=== PATIENT | female | born 2000 | race Caucasian/White ===

== ENCOUNTER 2025-07-21 23:55 | Observation (INO) | payer OTHER, SELFPAY ==
[2025-07-21 18:07] VITALS: BP 118/81
[2025-07-21 18:48] LABS: Urine Character Clear (Clear)
[2025-07-21 19:15] LABS: Urine Squamous Cell >30 /LPF (Few)
[2025-07-21 19:37] VITALS: BMI 34.0
--- NOTE | 2025-07-21 20:01 | ED.GENMED ---
History of Present Illness
General
Chief Complaint: Abdominal Pain
Source: patient
Exam Limitations: none
Time Seen by Provider: 07/21/25 19:49
Nursing documentation reviewed up to this point in time: agreed with
History of Present Illness
History of Present Illness:
Note:
CHIEF COMPLAINT(S)
Abdominal pain.
HISTORY OF PRESENT ILLNESS
The patient is a 25-year-old female who presents with abdominal pain that started three days ago. She describes the pain as sharp and constant, with exacerbating episodes. She reports having to bend over due to the intensity of the pain and mentions
that taking deep breaths exacerbates the discomfort. She denies any urinary symptoms, fever, vomiting, or diarrhea. The patient also describes tenderness in the abdominal area, which she indicated to the provider. The pain distribution does not
typically align with kidney stones or cholecystitis, but an evaluation for potential kidney infection is being considered. The patient states that the pain is manageable at the moment, although there are episodes where it becomes quite sharp.
PAST MEDICAL AND SURGICAL HISTORY
The patient has a history of two skin grafts and a surgical procedure involving a jonnie insertion into her leg due to a tibial fracture incurred while sledding.
PAST SURGICAL HISTORY
- Two skin grafts: one for skin removal from the hand, replaced with skin from the inner thigh and inner elbow.
- Titanium jonnie insertion for a tibial fracture due to sledding injury.
PHYSICAL EXAM
General: Alert, no acute distress.
Skin: Warm, dry.
Head: Normocephalic, atraumatic.
Neck: Supple, trachea midline.
Eye Ears, nose, mouth and throat: Oral mucosa moist.
Cardiovascular: Normal peripheral perfusion, No edema.
Respiratory: Respirations are non-labored.
Gastrointestinal : Abdomen tender to palpation, localized LUQ, RLQ.
Back: Normal range of motion, Normal alignment.
Musculoskeletal: Normal ROM, normal strength.
Neurological: Alert and oriented to person, place, time, and situation. No focal neurological deficit observed.
Psychiatric: Cooperative, appropriate mood & affect.
PLAN
- Obtain a urine sample and perform urinalysis.
- Initiate an intravenous line, conduct blood tests.
- Consider a computed tomography scan to evaluate abdominal tenderness.
- Possible oral contrast administration pending lab results.
- Evaluate for potential kidney infection.
- Monitor pain levels and provide analgesics if necessary.
DIFFERENTIAL DIAGNOSIS
The Differential Diagnosis includes, in no particular order and is not limited to:
1. Abdominal muscle strain
2. Gastroenteritis
3. Appendicitis
4. Nephrolithiasis (kidney stones)
5. Cholecystitis
6. Pancreatitis
7. Urinary tract infection
8. Diverticulitis
9. Ovarian pathology (cysts or torsion)
10. Pyelonephritis
Disposition:
SUMMARY OF ENCOUNTER
The patient was seen in the emergency department due to an abdominal pain that had persisted for several days. The evaluation included the consideration of various diagnoses. During the visit, she experienced an allergic reaction likely due to IV
contrast dye, characterized by hives. Immediate management included administration of intravenous diphenhydramine, which alleviated her symptoms. Thereafter, her care was transferred to the hospitalists for further management.
DISPOSITION
Admit to hospitalists.
ASSESSMENT
The patient demonstrated an allergic reaction to IV contrast, presenting with hives, and improved with treatment. Her condition required admission to the hospital for further evaluation and management.
EMERGENCY TREATMENTS ADMINISTERED
Intravenous diphenhydramine was administered to address the allergic reaction.
MANAGEMENT OF THE PATIENTS CARE WAS DISCUSSED WITH
The patients care and further management plans were discussed with the hospitalists upon admission.
INDEPENDENT REVIEW OF LABS AND INTERPRETATION OF TESTS
My independent review of the lab results indicates leukocytosis, suggesting an inflammatory or infectious process.
PATIENT EDUCATION AND COUNSELING
The patient was informed about the potential allergic reaction to IV contrast and the importance of documenting this allergy in her medical records to prevent future occurrences.
FOLLOW-UP INSTRUCTIONS
Follow-up plans to be continued with the hospital team and any emerging recommendations will be provided upon discharge.
MEDICATION RECONCILIATION
Intravenous diphenhydramine was given for the allergic reaction.
MEDICAL DECISION MAKING
- Number and Complexity of Problems Addressed: Chronic conditions affecting care include the patients history of skin grafts and a surgical procedure for a tibial fracture. Differential diagnoses considered were abdominal muscle strain,
gastroenteritis, appendicitis, nephrolithiasis, cholecystitis, pancreatitis, urinary tract infection, diverticulitis, ovarian pathology, and pyelonephritis.
- Data:
Category 1: Lab tests reviewed indicated leukocytosis.
Category 3: Discussion of management involved consulting with hospitalists regarding the patients admission.
- Risk: Consideration of Admission/Observation was required due to the complexity and risk, including the need for hospital admission for further evaluation and management.
DIAGNOSIS
Diverticulitis
Allergic reaction to IV contrast (ICD-10: T78.2XXA). Leukocytosis (ICD-10: D72.829).
Past History
Past History
ED Past Medical History: GERD, Other (Vocal cord disfunction, Constipation, Fatty liver) and Other (Meds: Allergy medicine, control pills, Lamictal); Negative Asthma, HTN, Hypercholesterolemia or NIDDM
ED Past Surgical History: None
Social History
Tobacco: Non-smoker
Alcohol: Occasional
Personal: Single
Living: with family
Phy Exam
Physical Exam
Physical Exam:
.
Course
Orders/Labs/Results
Orders:
Orders
07/21/25 18:11
Test Result ONCE
07/21/25 18:21
Urinalysis Reflex To Culture Urgent
Date Specimen was Collected: 07/21/25
Time Specimen was Collected: 18:11
Urine Microscopic Reflex Cult Urgent
Urine Culture Urgent
ARSENIO Source: U
Specimen Description:
Date Specimen was Collected: 07/21/25
Time Specimen was Collected: 18:11
07/21/25 19:59
Iohexol [Omnipaque] See Protocol PO NOW STA
07/21/25 20:00
CT Abd/pel W Iv And Oral Contr Urgent
Comment:
Reason For Exam: diffuse abd pain
07/21/25 20:46
Basic Metabolic Panel Urgent
Complete Blood Count/With Diff Urgent
Lipase Urgent
07/21/25 21:49
HCG, Serum Qualitative Screen Urgent
Ezpka-Uclv-Payvrjy Urgent
Morphine Sulfate 4 mg IV NOW STA
Ondansetron Injectable [Zofran] 4 mg IV NOW STA
07/21/25 22:38
Diphenhydramine [Benadryl] 25 mg IV NOW STA
07/21/25 23:06
Piperacillin/Tazo 4.5 Gram [Zosyn] 4.5 gram in 100 ml IV NOW
Abnormal Lab Results
07/21/25 07/21/25 07/21/25
18:21 20:46 21:49
WBC 15.7 H 10^3/uL
(4.8-10.8)
Hct 36.9 L %
(37.0-47.0)
Abs Immat Gran (auto) 0.1 H 10^3/uL
(0-0.05)
Absolute Neuts (auto) 10.7 H 10^3/uL
(1.4-6.5)
Absolute Monos (auto) 1.2 H 10^3/uL
(0.1-0.6)
Carbon Dioxide 21 L mmol/L
(22-30)
BUN 6 L mg/dl
(7-17)
Creatinine 0.5 L mg/dL
(0.6-1.0)
Total Bilirubin 2.1 H mg/dl
(0.2-1.3)
Direct Bilirubin 0.5 H mg/dl
(0.0-0.4)
Urine Ketones 3+ A
(Negative)
Ur Occult Blood Reflex 3+ A
(Negative)
Leukocyte Esterase Rfl 1+ A
(Negative)
Urine RBC 3-6 A /HPF
(0-2)
Urine WBC (Reflex) 11-15 A /HPF
(0-5)
Urine Bacteria (Reflex) Many A
(Negative)
Urine Albumin (Reflex) 1+ A
(Neg - Trace)
07/21/25 20:46
07/21/25 20:46
Vital Signs
Initial and Last Documented VS:
Initial Vital Signs
Temp Pulse Resp BP Pulse Ox
98.6 F 102 16 118/81 98
07/21/25 18:07 07/21/25 18:07 07/21/25 18:07 07/21/25 18:07 07/21/25 18:07
Last Documented Vital Signs
Temp Pulse Resp BP Pulse Ox
98 F 111 15 115/64 99
07/21/25 20:08 07/21/25 22:15 07/21/25 22:15 07/21/25 22:00 07/21/25 22:15
*Pulse Oximetry
SaO2: 98
Oxygen Mode of Delivery: Room air
Patient hypoxic: no
*Critical Care Note
Total Time (30-74mins, 75-104mins- exclusive of procedures): Not Applicable
ED Attending Note
-
Portions of this chart may have been created with voice recognition software.� Occasional wrong word or��sound alike� substitutions may have occurred due to the inherent limitations of voice recognition software.
Discharge Plan
Departure
Patient Disposition: Admit
Date of Disposition: 07/21/25
Time of Disposition: 23:07
Admit to: Med/Surg
Presentation/result/management discussed w/ accepting MD/DO: Hospitalist
Patient with high blood pressure during this ER visit?: No
Condition: Good
Discharge Problem:
Acute diverticulitis, Hepatic steatosis
Prescriptions:
No Action
epinephrine [EpiPen] 0.3 MG/0.3/SYRINGE auto-injector
0.3 mg IM ONCE PRN (Reason: allergic reaction) Qty: 1 1RF
multivitamin 1 EACH tablet
1 ea PO DAILY
lamotrigine 100 MG tablet
50 mg PO DAILY
cholecalciferol (vitamin D3) 2,000 UNITS tablet
2,000 units PO DAILY
norgestimate-ethinyl estradiol [Mariola] 0.25-0.035 mg Tablet
See Rx Instructions .ROUTE .COMPLEX
Rx Instructions:
0.25-0.035mg daily
cetirizine [Zyrtec] 10 mg Tablet
10 mg PO DAILY PRN (Reason: allergy)
Referrals:
Elif Harris DO [Family Provider, Family Practice]
Interventions
Interventions:
*Risk Screen - Suicide Last Done: 07/21/25 18:07
*General Assessment Last Done: 07/21/25 19:38
*Neglect/Abuse Screening Last Done: 07/21/25 18:07
*ED COVID-19 Vaccine History Last Done: 07/21/25 19:38
*ED Influenza Vaccine History Last Done: 07/21/25 19:38
CC-Zcodpt-Iyhozjsasg Assessment Last Done: 07/21/25 19:49
Discharge Date and Time
Print Language: NEPALI
[2025-07-21 20:32] VITALS: BP 120/70
[2025-07-21] MEDS: OMNIPAQUE 50 ML PO (20:40)
[2025-07-21 20:56] LABS: Hematocrit 36.9 % (37.0-47.0); Hemoglobin 12.3 g/dL (12.0-16.0); Mean Corp Hgb Conc. 33.3 g/dL (33.0-37.0); Mean Corpuscular Volume 83.7 fL (81.0-99.0); Nucleated Red Blood Cells % 0 %; Platelet Count 305 10^3/uL (130-400); Red Cell Dist. Width 12.8 % (11.5-14.5)
[2025-07-21 21:00] VITALS: BP 111/71
[2025-07-21 21:23] LABS: Blood Urea Nitrogen 6 mg/dl (7-17); Calcium 9.3 mg/dl (8.4-10.2); Carbon Dioxide 21 mmol/L (22-30); Chloride 103 mmol/L (98-107); Estimated Creatinine Clearance > 125 ml/min; Glucose 72 mg/dl (70-99); Lipase 35 U/L (23-300); Sodium 136 mmol/L (135-145); eGFR > 60.00
[2025-07-21] MEDS: ZOFRAN 4 MG IV (21:55)
[2025-07-21] MEDS: MORPHINE SULFATE 4 MG IV (21:56)
[2025-07-21 22:00] VITALS: BP 115/64
[2025-07-21 22:13] LABS: HCG, Serum Qualitative Screen Negative
[2025-07-21 22:24] LABS: ALT (SGPT) 25 U/L (0-35); AST (SGOT) 28 U/L (14-36); Albumin 3.9 g/dl (3.5-5.0); Alkaline Phosphatase 74 U/L (38-126); Total Protein 7.1 g/dl (6.3-8.2)
[2025-07-21] MEDS: BENADRYL 25 MG IV (22:40)
[2025-07-21 23:00] VITALS: BP 125/74
[2025-07-21] MEDS: ZOSYN 100 IV (23:20)
--- NOTE | 2025-07-21 23:40 | HPS.HSE ---
Family Physician
-
Family Physician: Elif Harris
Chief Complaint
-
Abdominal pain
History of Present Illness
This is a 25-year-old female with past medical history significant for anxiety/depression who presents to the emergency department with acute onset of abdominal pain that started 3 days ago.
Reports pain localized to the periumbilical region and radiates across her abdomen. She denies any radiation to the back. She reports pain is worse when she takes a deep breath but still localized to her abdomen. She denies any nausea or vomiting
or diarrhea. She denies having any fevers or chills.
She denies any prior history of similar symptoms. She denies any known sick contacts or recent travels. She denies any recent antibiotic use. She denies any recent hospitalization.
In the emergency department she was afebrile, blood pressure was 125/74 with a pulse of 95 and she was satting 97% on room air.
She had a white count of 15.7 otherwise hemoglobin and platelets were normal. Electrolytes were in the normal range BUN/creatinine were normal glucose was low at 72. UA was contaminated. LFTs shows a total bilirubin of 2.1 but otherwise
unremarkable.
CT of the abdomen pelvis shows acute diverticulitis Expection of the colon.
Medical History
Past Medical History
Past Medical History: Reports Psychiatric (Anxiety/depression, vocal cord dysfunction)
Past Surgical History: Reports Other (Right hand skin graft)
Social History
Tobacco: Non-smoker
Alcohol: None
Drug: None
Personal: Single
Living: With Family
Family History
Family History: Not pertinent
Allergies / Home Medications
Allergies reflects when Allergies were last updated in [email or web address].
Home Medications with original date entered in [email or web address]
Allergy/Medication List:
Allergies
Allergy/AdvReac Type Severity Reaction Status Date / Time
animal dander Allergy Unknown Verified 07/21/25 18:09
taylor Allergy Anaphylaxis Verified 07/21/25 18:09
grass pollen Allergy Unknown Verified 07/21/25 18:09
mold Allergy Unknown Verified 07/21/25 18:09
soy Allergy Anaphylaxis Verified 07/21/25 18:09
tree and shrub pollen Allergy Unknown Verified 07/21/25 18:09
seasonal Allergy Unknown Uncoded 07/21/25 18:09
Home Medications
epinephrine 0.3 mg/0.3 mL injection, auto-injector (EpiPen) 0.3 mg (0.3 mL) IM ONCE PRN allergic reaction #1 mL 05/06/19
cholecalciferol (vitamin D3) 50 mcg (2,000 unit) tablet 2,000 units PO DAILY 05/24/21
lamotrigine 100 mg tablet 50 mg PO DAILY 05/24/21
multivitamin 1 ea PO DAILY 05/24/21
cetirizine 10 mg tablet (Zyrtec) 10 mg PO DAILY PRN allergy 07/21/25
norgestimate 0.25 mg-ethinyl estradiol 0.035 mg tablet (Mariola) See Rx Instructions .Route .COMPLEX 07/21/25
Review of Systems
-
History Source: Patient
Constitutional: Reports No Symptoms
EENT: Reports No Symptoms
Respiratory: Reports No Symptoms
Cardiac: Reports No Symptoms
Abdomen/GI: Reports Abdominal Pain
: Reports No Symptoms
Musculoskeletal: Reports No Symptoms
Skin: Reports No Symptoms
Neurological: Reports No Symptoms
Endocrine: Reports No Symptoms
Hematologic/Lymphatic: Reports No Symptoms
Psych: Reports No Symptoms
Physical Exam
Vital Signs
Vital Signs
Temp Pulse Resp BP Pulse Ox
98 F 95 20 125/74 97
07/21/25 20:08 07/21/25 23:15 07/21/25 23:15 07/21/25 23:00 07/21/25 23:15
Physical Exam
General: Well Developed, Well Nourished and No Apparent Distress
HEENT: NormoCephalic, Moist mucous membranes and Atraumatic
Respiratory: Clear
Cardiac: S1/S2 and Regular Rhythm; No Murmur or Rub
GI: Soft, Non Tender, Non Distended and Normal Bowel Sounds; No Organomegaly
Rectal: Deferred by Provider
Musculoskeletal: No Clubbing, No Cyanosis and No Edema
Skin: No Rash
Neuro: AO x 3 and Nonfocal/grossly intact
Laboratory Results
-
07/21/25 20:46
07/21/25 20:46
Laboratory Results
Total Bilirubin 2.1 mg/dl (0.2-1.3) H 07/21/25 21:49
AST 28 U/L (14-36) 07/21/25 21:49
ALT 25 U/L (0-35) 07/21/25 21:49
Alkaline Phosphatase 74 U/L (38-126) 07/21/25 21:49
Lipase 35 U/L (23-300) 07/21/25 20:46
Data Reviewed
-
CT Scan: Report Reviewed by me
Lab Data: Labs Reviewed by me
Old Records: Reviewed
Impression/Plan
-
IMPRESSION:
25-year-old female with abdominal pain found to acute defer colitis of the splenic flexure of the colon. She is hemodynamically stable and afebrile at this time. She does have leukocytosis to 15.7.
PLAN:
Acute diverticulitis -no complications, hemodynamically stable and in no acute distress. No recent antibiotic use. No recent hospitalization. No known risk factors for resistant bacteria.
-Admit to MedSurg observation for now
-Blood cultures afebrile
-Started on Zosyn, continue with IV Unasyn for now
-Antiemetics, pain control
-Clear liquid diet, advance as tolerated
Hepatic steatosis - Concern for MASLD.
- Tbili elevated to 2.1, AST/ALT alk phos normal.
- check inr,
- check a1c and lipid panel
- check iron panel
- consider GI f/u for additional testing including antitrypsin and serologies
Continue her lamotrigine and control
DVT prophylaxis�SCDs
CODE STATUS�full code
[2025-07-22] VITALS (7 sets, daily range): BP systolic 95–117; BP diastolic 53–72; BMI 35.2
[2025-07-22] MEDS: LR 1000 IV (05:53)
[2025-07-22] MEDS: UNASYN IV ×4 (05:54→23:40)
[2025-07-22 06:07] LABS: Hematocrit 32.4 % (37.0-47.0); Hemoglobin 11.0 g/dL (12.0-16.0); Mean Corp Hgb Conc. 34.0 g/dL (33.0-37.0); Mean Corpuscular Volume 82.2 fL (81.0-99.0); Platelet Count 250 10^3/uL (130-400); Red Cell Dist. Width 12.5 % (11.5-14.5)
[2025-07-22 06:32] LABS: Blood Urea Nitrogen 5 mg/dl (7-17); Calcium 8.8 mg/dl (8.4-10.2); Carbon Dioxide 23 mmol/L (22-30); Chloride 105 mmol/L (98-107); Estimated Creatinine Clearance > 125 ml/min; Glucose 112 mg/dl (70-99); HDL Cholesterol 69 mg/dl; Iron 52 ug/dl (37-170); LDL Cholesterol, Calculated 78 mg/dl; Magnesium 2.0 mg/dl (1.6-2.3); Potassium 3.7 mmol/L (3.5-5.1); Sodium 135 mmol/L (135-145); Very Low Density Lipoprotein 24 mg/dl (0-30); eGFR > 60.00
[2025-07-22 06:41] LABS: Total Iron Binding Capacity 346 ug/dl (265-497)
[2025-07-22 07:06] LABS: Ferritin 106.0 ng/ml (6.24-137)
[2025-07-22] MEDS: ZYRTEC 10 MG PO (07:17)
[2025-07-22] MEDS: TORADOL 10 MG IV ×2 (07:17→17:30)
[2025-07-22] MEDS: VITAMIN D3 (cholecalciferol) 50 MCG PO (07:17)
[2025-07-22] MEDS: LAMICTAL 50 MG PO (07:17)
--- NOTE | 2025-07-22 07:56 | PTCARENOTE ---
pt aaox3. states 4/10 pain around umbilicus. pain med given as ordered. ivf running as ordered.
[2025-07-22 09:24] LABS: ALT (SGPT) 23 U/L (0-35); AST (SGOT) 24 U/L (14-36); Albumin 3.6 g/dl (3.5-5.0); Alkaline Phosphatase 70 U/L (38-126); Total Protein 6.5 g/dl (6.3-8.2)
[2025-07-22 10:31] LABS: Glycohemoglobin (HgbA1c) 5.2 % (4.0-5.9)
--- NOTE | 2025-07-22 12:34 | W.PN.HOSP.TC ---
Today's Communication/Plan
-
Continue with IV antibiotics
Monitor for diet tolerance
Advance to fulls
Assessment / Plan
Assessment / Plan
General: Well Developed, Well Nourished and No Apparent Distress
HEENT: NormoCephalic, Moist mucous membranes and Atraumatic
Respiratory: Clear
Cardiac: S1/S2 and Regular Rhythm; No Murmur or Rub
GI: Soft, Non Tender, Non Distended and Normal Bowel Sounds; No Organomegaly
Rectal: Deferred by Provider
Musculoskeletal: No Clubbing, No Cyanosis and No Edema
Skin: No Rash
Neuro: AO x 3 and Nonfocal/grossly intact
IMPRESSION:
25-year-old female with abdominal pain found to acute defer colitis of the splenic flexure of the colon. She is hemodynamically stable and afebrile at this time. She does have leukocytosis to 15.7.
PLAN:
Acute diverticulitis -no complications, hemodynamically stable and in no acute distress. No recent antibiotic use. No recent hospitalization. No known risk factors for resistant bacteria.
-continue with IV Unasyn for now WBC downtrending.
-Antiemetics, pain control
-ADAT. Fulls for dinner. Can advanced to LRD in am.
-recs OP GI f/u. Family history (mother had diverticulitis around the same age-no subsequent episode thereafter)
Hepatic steatosis - Concern for MASLD.
- T. bili downtrending. AST ALT normal. Triglyceride 4 cholesterol normal. A1c 5.2.
- Outpatient GI follow-up.
Continue her lamotrigine and control
DVT prophylaxis�SCDs
CODE STATUS�full code
Discussed with patient mother at bedside in detail
Anticipated Discharge: 24 - 48 hours
Subjective/Interval History
-
Date of Service: July 22, 2025
tolerated clears earlier today
remains with mild abd pain
no nausea or vomiting
Objective Data
-
Labs:
Laboratory Results
07/22/25
05:52
WBC 12.4 H
Hgb 11.0 L
Hct 32.4 L
Plt Count 250
Sodium 135
Potassium 3.7
Chloride 105
Carbon Dioxide 23
BUN 5 L
Creatinine 0.5 L
Glucose 112 H
Calcium 8.8
Total Bilirubin 1.8 H
AST 24
ALT 23
Alkaline Phosphatase 70
Vital Signs:
Vital Signs
Temp Pulse Resp BP Pulse Ox
98.6 F 84 18 108/61 99
07/22/25 07:46 07/22/25 07:46 07/22/25 07:46 07/22/25 07:46 07/22/25 07:46
Data Reviewed
-
Total Time Spent with Patient (in minutes): 55
--- NOTE | 2025-07-22 16:18 | PTCARENOTE ---
Pt arrived to 2S in bed. Full assessment completed. Pt educated on diet and call davis, oriented to room. Bed locked and in the lowest position, safety maintained.
[2025-07-22] MEDS: TYLENOL 650 MG PO (21:29)
[2025-07-23] MEDS: UNASYN IV ×4 (05:15→23:23)
[2025-07-23 07:05] VITALS: BP 101/68
[2025-07-23] MEDS: VITAMIN D3 (cholecalciferol) 50 MCG PO (07:31)
[2025-07-23] MEDS: LAMICTAL 50 MG PO (07:31)
[2025-07-23] MEDS: ZYRTEC 10 MG PO (07:32)
[2025-07-23 08:25] VITALS: BP 101/68
[2025-07-23 09:45] LABS: Hematocrit 36.8 % (37.0-47.0); Hemoglobin 11.8 g/dL (12.0-16.0); Mean Corp Hgb Conc. 32.1 g/dL (33.0-37.0); Mean Corpuscular Volume 88.2 fL (81.0-99.0); Nucleated Red Blood Cells % 0 %; Platelet Count 295 10^3/uL (130-400); Red Cell Dist. Width 12.9 % (11.5-14.5)
[2025-07-23 10:16] LABS: ALT (SGPT) 34 U/L (0-35); AST (SGOT) 38 U/L (14-36); Albumin 3.9 g/dl (3.5-5.0); Alkaline Phosphatase 78 U/L (38-126); Blood Urea Nitrogen 3 mg/dl (7-17); Calcium 9.3 mg/dl (8.4-10.2); Carbon Dioxide 26 mmol/L (22-30); Chloride 108 mmol/L (98-107); Estimated Creatinine Clearance > 125 ml/min; Glucose 85 mg/dl (70-99); Potassium 3.8 mmol/L (3.5-5.1); Sodium 139 mmol/L (135-145); Total Protein 7.2 g/dl (6.3-8.2); eGFR > 60.00
--- NOTE | 2025-07-23 11:04 | CM ---
Addendum entered by Edd Parson 07/23/25 11:09:
OBS status reviewed, signed, place on chart, pt has a copy.
Original Note:
CM following re: discharge planning.
Reviewed pt's chart, met with pt.
Pt is a 25 year old female, admitted with OBS status and primary dx of Acute diverticulitis. Per MD, no complications, hemodynamically stable and in no acute distress.
Pt reports she lives with a grandmother 2SH, 1 step to enter, has supportive mother. 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
PCP: Elif Davalos
Pharmacy: [facility]
D/C plan: home with no needs. Pt stated she will drive home, her car is o the parking lot.
--- NOTE | 2025-07-23 11:22 | W.PN.HOSP.TC ---
Today's Communication/Plan
-
ADAT-monitor diet tolerance
IV abx for now
Assessment / Plan
Assessment / Plan
General: Well Developed, Well Nourished and No Apparent Distress
HEENT: NormoCephalic, Moist mucous membranes and Atraumatic
Respiratory: Clear
Cardiac: S1/S2 and Regular Rhythm; No Murmur or Rub
GI: Soft, epigastric and LUQ Tender, Non Distended and Normal Bowel Sounds; No Organomegaly
Rectal: Deferred by Provider
Musculoskeletal: No Clubbing, No Cyanosis and No Edema
Skin: No Rash
Neuro: AO x 3 and Nonfocal/grossly intact
IMPRESSION:
25-year-old female with abdominal pain found to acute defer colitis of the splenic flexure of the colon. She is hemodynamically stable and afebrile at this time. She does have leukocytosis to 15.7.
PLAN:
Acute diverticulitis -no complications, hemodynamically stable and in no acute distress. No recent antibiotic use. No recent hospitalization. No known risk factors for resistant bacteria.
-continue with IV Unasyn for now WBC normalized
-Antiemetics, pain control
-ADAT. Monitor diet tolernace .
-recs OP GI f/u. Family history (mother had diverticulitis around the same age-no subsequent episode thereafter)
Hepatic steatosis - Concern for MASLD.
- T. bili downtrending. AST ALT normal. Triglyceride 4 cholesterol normal. A1c 5.2.
- Outpatient GI follow-up.
Continue her lamotrigine and control
2.4 Left ovarian cyst-op STYLIST ASSISTANT f/u
DVT prophylaxis�SCDs
CODE STATUS�full code
Discussed with patient mother at bedside in detail
Anticipated Discharge: Within 24 hours
Subjective/Interval History
-
Date of Service: July 23, 2025
states abd pain has improved
no abd pain for the past 24h
no nausea or vomiting
Objective Data
-
Labs:
Laboratory Results
07/23/25
09:28
WBC 5.8
Hgb 11.8 L
Hct 36.8 L
Plt Count 295
Sodium 139
Potassium 3.8
Chloride 108 H
Carbon Dioxide 26
BUN 3 L
Creatinine 0.5 L
Glucose 85
Calcium 9.3
Total Bilirubin 0.8 D
AST 38 H
ALT 34
Alkaline Phosphatase 78
Vital Signs:
Vital Signs
Temp Pulse Resp BP Pulse Ox
97.9 F 79 18 101/68 98
07/23/25 07:05 07/23/25 07:05 07/23/25 07:05 07/23/25 07:05 07/23/25 07:05
I&O
07/22/25 07/23/25 07/24/25
06:59 06:59 06:59
Intake Total 1320 / 1320 480 / 480
Balance 1320 / 1320 480 / 480
[2025-07-23] MEDS: TYLENOL 650 MG PO (14:31)
[2025-07-23 15:05] VITALS: BP 111/64
[2025-07-23 23:02] VITALS: BP 106/59
[2025-07-24] MEDS: UNASYN IV (06:05)
[2025-07-24 06:59] VITALS: BP 115/77
[2025-07-24] MEDS: ZYRTEC 10 MG PO (07:48)
[2025-07-24] MEDS: LAMICTAL 50 MG PO (07:48)
[2025-07-24] MEDS: VITAMIN D3 (cholecalciferol) 50 MCG PO (07:49)
[2025-07-24 08:45] LABS: Hematocrit 34.5 % (37.0-47.0); Hemoglobin 11.4 g/dL (12.0-16.0); Mean Corp Hgb Conc. 33.0 g/dL (33.0-37.0); Mean Corpuscular Volume 84.1 fL (81.0-99.0); Nucleated Red Blood Cells % 0 %; Platelet Count 304 10^3/uL (130-400); Red Cell Dist. Width 12.8 % (11.5-14.5)
[2025-07-24 09:03] LABS: ALT (SGPT) 35 U/L (0-35); AST (SGOT) 38 U/L (14-36); Albumin 3.8 g/dl (3.5-5.0); Alkaline Phosphatase 78 U/L (38-126); Blood Urea Nitrogen 5 mg/dl (7-17); Calcium 9.0 mg/dl (8.4-10.2); Carbon Dioxide 25 mmol/L (22-30); Chloride 109 mmol/L (98-107); Estimated Creatinine Clearance > 125 ml/min; Glucose 88 mg/dl (70-99); Potassium 4.3 mmol/L (3.5-5.1); Sodium 140 mmol/L (135-145); Total Protein 6.8 g/dl (6.3-8.2); eGFR > 60.00
--- NOTE | 2025-07-24 10:36 | W.PN.HOSP.TC ---
Today's Communication/Plan
-
po abx
OP director commercial sales/gi f/u
Assessment / Plan
Assessment / Plan
General: Well Developed, Well Nourished and No Apparent Distress
HEENT: NormoCephalic, Moist mucous membranes and Atraumatic
Respiratory: Clear
Cardiac: S1/S2 and Regular Rhythm; No Murmur or Rub
GI: Soft, non tender, Non Distended and Normal Bowel Sounds; No Organomegaly
Rectal: Deferred by Provider
Musculoskeletal: No Clubbing, No Cyanosis and No Edema
Skin: No Rash
Neuro: AO x 3 and Nonfocal/grossly intact
IMPRESSION:
25-year-old female with abdominal pain found to acute defer colitis of the splenic flexure of the colon. She is hemodynamically stable and afebrile at this time. She does have leukocytosis to 15.7.
PLAN:
Acute diverticulitis -no complications, hemodynamically stable and in no acute distress. No recent antibiotic use. No recent hospitalization. No known risk factors for resistant bacteria.
-continue with IV Unasyn for now WBC normalized
-Antiemetics, pain control
-ADAT. tolerating diet.
-recs OP GI f/u. Family history (mother had diverticulitis around the same age-no subsequent episode thereafter)
Hepatic steatosis - Concern for MASLD.
- T. bili downtrending. AST ALT normal. Triglyceride 4 cholesterol normal. A1c 5.2.
- Outpatient GI follow-up.
Continue her lamotrigine and control
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
DVT prophylaxis�SCDs
CODE STATUS�full code
More than 30 minutes spent in discharge including
Final examination of the patient
Summarizing hospital stay
Instructions for continuing care to all relevant caregivers
Preparation of discharge records, prescriptions, and referral forms
Total time spent (in minutes): 53
Anticipated Discharge: Today
Subjective/Interval History
-
Date of Service: July 24, 2025
had bm last night
significant improvement in abd pain
tolerating LRD without any difficulty
Objective Data
-
Labs:
Laboratory Results
07/24/25
07:24
WBC 7.5
Hgb 11.4 L
Hct 34.5 L
Plt Count 304
Sodium 140
Potassium 4.3
Chloride 109 H
Carbon Dioxide 25
BUN 5 L
Creatinine 0.5 L
Glucose 88
Calcium 9.0
Total Bilirubin 0.5
AST 38 H
ALT 35
Alkaline Phosphatase 78
Vital Signs:
Vital Signs
Temp Pulse Resp BP Pulse Ox
98.1 F 76 16 115/77 95
07/24/25 06:59 07/24/25 06:59 07/24/25 06:59 07/24/25 06:59 07/24/25 10:29
I&O
07/23/25 07/24/25 07/25/25
06:59 06:59 06:59
Intake Total 1320 / 1320 960 / 960
Balance 1320 / 1320 960 / 960
--- NOTE | 2025-07-24 10:37 | W.DCSUMMARY ---
Discharge Summary
Discharge Data
Date of Admission: 07/21/25
Date of Discharge: 07/24/25
-
Pending Results: No
Hospital Course
25-year-old female past medical history of anxiety, depression, vocal cord dysfunction who is presenting in the home with complaints of abdominal pain. Patient upon admission with elevated white count. Patient underwent CT abdomen pelvis. CT
showed ACUTE DIVERTICULITIS in the SPLENIC FLEXURE of the COLON. Moderate to severe diffuse hepatic steatosis.b2.4 cm left ovarian cyst. Minimal peritoneal fluid in the pelvic cul-de-sac. Patient was kept n.p.o. and started on IV fluids. IV
antibiotics were started. Patient diet was advanced to clear liquids. Patient was tolerating clear liquids which was advance to fulls. Patient WBC normalized. Diet was advanced to low residue. Patient remained afebrile. Patient abdominal pain
significantly improved. Upon CAT scan was also found with hepatic steatosis and left ovarian cyst. Patient was recommended to follow-up with her primary care oncologist regarding for ovarian cyst. Also when she follows up with gastroenterology to
discuss about hepatic steatosis. Patient was tolerating diet without any difficulty. Patient remained afebrile. Patient be discharged home with p.o. antibiotics.
Discharge Plan
-
Patient Disposition: Home (Routine Discharge)
Discharge Diagnosis/Procedures: ACUTE DIVERTICULITIS in the SPLENIC FLEXURE of the COLON.
Mild AST elevation
Condition: Fair
Diet: Low Residue
Activity: As tolerated
Driving Restrictions: As prior to admission
Blood Work: CMP in 7-10 days via primary doctor
Activity Restrictions/Additional Instructions:
CT abdomen/pelvis showed-2.4 cm left ovarian cyst.f/u with your dredge worker.
CT abdomen/pelvis also showed Moderate to severe diffuse hepatic steatosis.-follow up with regional training manager.
Instructions: Diverticulitis
Referrals:
Elif Harris DO [Family Provider, Family Practice] - in less than 1 week
Nick Wayne MD [Active, Gastroenterology] - in six weeks
Referral Note: Call to make appointment. Follow-up diverticulitis and hepatic steatosis.
Prescriptions:
New
amoxicillin-pot clavulanate 875-125 mg tablet
1 tab PO BID Qty: 20 0RF
Continued
multivitamin 1 EACH tablet
1 ea PO DAILY
lamotrigine 100 MG tablet
50 mg PO DAILY
cholecalciferol (vitamin D3) 2,000 UNITS tablet
2,000 units PO DAILY
norgestimate-ethinyl estradiol [Mariola] 0.25-0.035 mg Tablet
1 tab PO DAILY
cetirizine [Zyrtec] 10 mg Tablet
10 mg PO DAILY PRN (Reason: allergy)
Discharge Orders:
Discharge Patient (As Directed); Ordered 07/24/25
Ordered By: Ruy Rowe
Discharge Date and Time
Discharge Date/Time: 07/24/25 11:34
Print Language: CHINESE
[2025-07-24 11:23] VITALS: BP 119/70
--- NOTE | 2025-07-24 11:30 | CM ---
CM following re: discharge planning.
Reviewed pt's chart, met with pt.
Discharge order noted. Pt is aware and she stated her mother is coming to take her belongings and pt confirmed she will drive home.
Pt lives with a grandmother 2SH, 1 step to enter, has supportive mother and pt is independent in all areas [employer], works, drives.
No after care VN needs identified.
D/C plan: home with no needs. Pt stated she will drive home, her car is o the parking lot.
== END 2025-07-24 11:34 | disposition home or self-care (01) ==
LOC: 2 SOUTH 23:55
PROVIDERS: Emergency Medicine; ADMITTING PHYSICIAN Internal Medicine; ATTENDING PHYSICIAN Hospitalist; EMERGENCY PHYSICIAN Emergency Medicine; FAMILY PHYSICIAN Family Medicine
DX: K57.32 Diverticulitis of large intestine without perforation or abscess without bleeding (principal); K76.0 Fatty (change of) liver, not elsewhere classified; L50.9 Urticaria, unspecified; T50.8X5A Adverse effect of diagnostic agents, initial encounter; F41.9 Anxiety disorder, unspecified; F32.A Depression, unspecified; N83.202 Unspecified ovarian cyst, left side; R74.01 Elevation of levels of liver transaminase levels
CPT/HCPCS: 74177; 80048; 80053; 80061; 80076; 81003; 81015; 82248; 82728; 83036; 83540; 83550; 83690; 83735; 84703; 85025; 85027; 87086; 96365; 96367; 99285; G0378; Q9967